=== PATIENT | female | born 1980 | race Caucasian/White ===

== ENCOUNTER 2018-09-09 06:50 | Emergency (ER) | payer OTHER ==
[~2018-09-09 06:50] MED LIST: ACE3 PO; ALBU2.5V36 INH; IBU800 PO; LANO56CR3 TP; PREN1COM12 PO
[2018-09-09] MEDS ORDERED: ONDANSETRON 4 MG/2 ML VIAL IVP ONE (07:10)
[2018-09-09] MEDS ORDERED: fentaNYL CITR 100 MCG/2 ML AMP IVP ONE (07:10)
[2018-09-09] MEDS ORDERED: NS(*) 0.9% 1000 ML BAG 1,000 ML IV ONE (07:10)
[2018-09-09] MEDS ORDERED: FEXO1TAB60 PO (07:12)
--- NOTE | 2018-09-09 07:20 | ER Report ---
History and Physical Time Seen By MD: 07:05 Hx. of Stated Complaint: PT SLIPPED OFF PULL-UP BAR AND LANDED ON L HAND, SLIGHT DEFORMITY PROXIMAL TO L ELBOW, PT FEELS NAUSEOUS HPI/ROS CHIEF COMPLAINT: Arm injury, fall HISTORY OF PRESENT ILLNESS: 38-year-old female was working out today just before arrival swinging on the pull-up bar when she slipped and fell, landing on outstretched hand, and developed instant pain at her left elbow. Patient denies pain in wrist, shoulder. She did not hit her head and she denies other injury. Of note, she became lightheaded and presyncopal as well as pale. She states she frequently has vasovagal reaction with stressors. Pain currently 6/10. Pt has intact sensation distally. REVIEW OF SYSTEMS: Constitutional: No fever, no chills. Eyes: no blurred vision ENT: No sore throat. Cardiovascular: No chest pain, no palpitations. Respiratory: No cough, no shortness of breath. Gastrointestinal: No abdominal pain, no vomiting. Genitourinary: no dysuria Musculoskeletal: No back pain. Injury as above Skin: No rashes. Neurological: No headache. Remainder of the 14 system rev: Yes Allergies: Coded Allergies: No Known Drug Allergies (Verified , 11/08/07) Home Meds Reported Medications Fexofenadine/Pseudoephedrine (JERI-D 12 HOUR TABLET) 1 Each Tab.er.12h, 1 TAB PO BID 09/09/18 Albuterol Sulfate 0.083% (ALBUTEROL SULFATE 0.083%) 2.5 Mg/3 Ml Vial.neb, 2.5 MG INH, INH 04/17/18 Reviewed Nurses Notes: Yes Hx Smoking: No Smoking Status: Never Smoker Exposure to Second Hand Smoke?: No Constitutional Vital Sign - Last 24 Hours 09/09/18 09/09/18 09/09/18 09/09/18 06:50 07:00 07:01 07:03 Pulse ??? B/P (MAP) 53/39 (44) 95/57 (70) 91/58 (69) 09/09/18 09/09/18 09/09/18 09/09/18 07:05 07:07 07:20 07:30 Temp 98.0 Pulse 68 66 61 Resp 16 B/P (MAP) 91/58 102/67 (79) Pulse Ox 89 93 93 O2 Delivery Room Air 09/09/18 09/09/18 09/09/18 09/09/18 07:35 07:50 08:00 08:05 Pulse 78 71 74 B/P (MAP) 110/71 (84) Pulse Ox 92 96 99 09/09/18 09/09/18 09/09/18 08:20 08:30 08:35 Pulse 77 72 B/P (MAP) 117/86 (96) Pulse Ox 96 99 Physical Exam General Appearance: The patient is alert, has no immediate need for airway protection and no signs of toxicity. Eyes: Pupils equal and round no pallor or injection. ENT, Mouth: Mucous membranes are dry. Respiratory: There are no retractions, lungs are clear to auscultation. Cardiovascular: Regular rate and rhythm. Neurological: alert, oriented, no focal deficits Skin: Pale,cool Musculoskeletal: Extremities are nontender, nonswollen and have full range of motion with exception of left elbow. Pt has no shoulder pain/ttp/stepoff. No humerus ttp. +TTP left lateral condyle and radial head. No wrist ttp. Pt able to extend elbow but holds hand in pronation and severe pain on supination. DIFFERENTIAL DIAGNOSIS: After history and physical exam differential diagnosis was considered for fracture, dislocation, soft tissue injury or other emergent result of fall. Medical Decision Making Data Points Result Diagram: 09/09/18 0730 09/09/18 0730 Laboratory Hematology Test 09/09/18 07:30 Red Blood Count 4.67 M/uL (4.17-5.56) Mean Corpuscular Volume 90.7 fL (80.0-96.0) Mean Corpuscular Hemoglobin 30.1 pg (26.0-33.0) Mean Corpuscular Hemoglobin Concent 33.1 g/dL (32.0-36.0) Red Cell Distribution Width 12.8 % (11.5-14.5) Mean Platelet Volume 9.1 fL (7.2-11.1) Neutrophils (%) (Auto) 57.4 % (39.4-72.5) Lymphocytes (%) (Auto) 33.2 % (17.6-49.6) Monocytes (%) (Auto) 4.8 % (4.1-12.4) Eosinophils (%) (Auto) 3.9 % (0.4-6.7) Basophils (%) (Auto) 0.7 % (0.3-1.4) Nucleated RBC Relative Count (auto) 0.1 /100WBC Neutrophils # (Auto) 5.0 K/uL (2.0-7.4) Lymphocytes # (Auto) 2.9 K/uL (1.3-3.6) Monocytes # (Auto) 0.4 K/uL (0.3-1.0) Eosinophils # (Auto) 0.3 K/uL (0.0-0.5) Basophils # (Auto) 0.1 K/uL (0.0-0.1) Nucleated RBC Absolute Count (auto) 0.01 K/uL Prothrombin Time 14.1 seconds (12.0-14.4) Prothromb Time International Ratio 1.09 Activated Partial Thromboplast Time 27 seconds (23-35) Sodium Level 136 mmol/L (137-145) Potassium Level 4.2 mmol/L (3.5-5.0) Chloride Level 108 mmol/L (98-107) Carbon Dioxide Level 22 mmol/L (22-31) Blood Urea Nitrogen 17 mg/dl (7-18) Creatinine 1.10 mg/dl (0.52-1.04) Glomerular Filtration Rate Calc 55.6 Random Glucose 154 mg/dl (75-110) Calcium Level 8.9 mg/dl (8.4-10.2) Total Bilirubin 0.8 mg/dl (0.2-1.3) Aspartate Amino Transf (AST/SGOT) 22 U/L (0-35) Alanine Aminotransferase (ALT/SGPT) 29 U/L (0-56) Alkaline Phosphatase 58 U/L (0-126) Total Protein 6.6 g/dl (6.3-8.2) Albumin 3.9 g/dl (3.5-5.0) Human Chorionic Gonadotropin, Qual Negative (NEGATIVE) Chemistry Test 09/09/18 07:30 White Blood Count 8.8 k/uL (4.5-11.0) Red Blood Count 4.67 M/uL (4.17-5.56) Hemoglobin 14.0 g/dL (12.0-16.0) Hematocrit 42.3 % (34.0-47.0) Mean Corpuscular Volume 90.7 fL (80.0-96.0) Mean Corpuscular Hemoglobin 30.1 pg (26.0-33.0) Mean Corpuscular Hemoglobin Concent 33.1 g/dL (32.0-36.0) Red Cell Distribution Width 12.8 % (11.5-14.5) Platelet Count 259 K/uL (150-450) Mean Platelet Volume 9.1 fL (7.2-11.1) Neutrophils (%) (Auto) 57.4 % (39.4-72.5) Lymphocytes (%) (Auto) 33.2 % (17.6-49.6) Monocytes (%) (Auto) 4.8 % (4.1-12.4) Eosinophils (%) (Auto) 3.9 % (0.4-6.7) Basophils (%) (Auto) 0.7 % (0.3-1.4) Nucleated RBC Relative Count (auto) 0.1 /100WBC Neutrophils # (Auto) 5.0 K/uL (2.0-7.4) Lymphocytes # (Auto) 2.9 K/uL (1.3-3.6) Monocytes # (Auto) 0.4 K/uL (0.3-1.0) Eosinophils # (Auto) 0.3 K/uL (0.0-0.5) Basophils # (Auto) 0.1 K/uL (0.0-0.1) Nucleated RBC Absolute Count (auto) 0.01 K/uL Prothrombin Time 14.1 seconds (12.0-14.4) Prothromb Time International Ratio 1.09 Activated Partial Thromboplast Time 27 seconds (23-35) Glomerular Filtration Rate Calc 55.6 Calcium Level 8.9 mg/dl (8.4-10.2) Total Bilirubin 0.8 mg/dl (0.2-1.3) Aspartate Amino Transf (AST/SGOT) 22 U/L (0-35) Alanine Aminotransferase (ALT/SGPT) 29 U/L (0-56) Alkaline Phosphatase 58 U/L (0-126) Total Protein 6.6 g/dl (6.3-8.2) Albumin 3.9 g/dl (3.5-5.0) Human Chorionic Gonadotropin, Qual Negative (NEGATIVE) Coagulation Test 09/09/18 07:30 Prothrombin Time 14.1 seconds Prothromb Time International Ratio 1.09 Activated Partial Thromboplast Time 27 seconds EKG/Imaging Imaging X-ray: left elbow/humerus/forearm was obtained. I viewed the images myself on the PACS system. My interpretation of the images is: coronoid process fracture. The radiologist interpretation had no clinically significant variation from this interpretation. ED Course/Re-evaluation ED Course 30-year-old patient presents with finished to her nondominant left hand. She has elbow pain and tenderness with pain increased with supination. No pain or tende rness elsewhere. X-rays show minimally displaced coronoid process fracture. Her elbow is stable. This is consistent with a type I fracture. I placed her in a posterior splint at 90. I will arrange follow-up with orthopedics. Anticipate early range of motion if no competitions. Repeat exam shows soft compartments and neurovascularly intact distally. Patient understands strict return precautions. Decision to Disposition Date: Sep 09, 2018 Decision to Disposition Time: 09:13 Depart Departure Latest Vital Signs Vital Signs Date Time Temp Pulse Resp B/P (MAP) Pulse Ox O2 Delivery O2 Flow Rate FiO2 09/09/18 08:35 72 99 09/09/18 08:30 117/86 (96) 09/09/18 07:07 98.0 16 Room Air Impression: Primary Impression: Fracture of coronoid process of left ulna Condition: Improved Disposition: HOME OR SELF-CARE Referrals: ROBERTO PIRES MD (PCP) OUMAR NEVAREZ MD New Scripts Hydrocodone Bit/Acetaminophen (NORCO 5-325 TABLET) 1 Each Tablet 1 EACH PO Q4-6H for PAIN, #10 TAB Prov: ESTUARDO CAMPBELL MD 09/09/18 Patient Instructions: Elbow Fracture (ED) Additional Instructions: As we discussed, call orthopedics to arrange follow-up. Anticipate follow-up in about one week. Please return immediately for uncontrolled pain, concerning swelling, loss of sensation or strength in the wrist or hand, or any concerns. You may take ibuprofen 600 mg every 8 hours, and Tylenol 650 mg every 6 hours for pain. You may use Cardwell for pain not resolved by these medications. If using Cardwell, I recommend taking a laxative like MiraLAX to prevent constipation. Problem Qualifiers Primary Impression: Fracture of coronoid process of left ulna Encounter type: initial encounter Fracture type: closed Fracture alignment: nondisplaced Qualified Codes: S52.045A - Nondisplaced fracture of coronoid process of left ulna, initial encounter for closed fracture ESTUARDO CAMPBELL MD Sep 09, 2018 07:20
[2018-09-09 07:43] LABS: PLATELET COUNT, AUTOMATED 259 K/uL (150-450)
[2018-09-09 07:52] LABS: INR 1.09
--- NOTE | 2018-09-09 08:20 | RADIOLOGY IMAGING REPORT ---
FACILITY: [facility] - [place] PATIENT NAME: Christina Parker : 1980 MR: [id number] V: [id number] EXAM DATE: ORDERING PHYSICIAN: ESTUARDO CAMPBELL TECHNOLOGIST: Location: [facility] - [place] Patient: Christina Parker : 1980 Visit/Account:[id number] Date of Sevice: 09/09/2018 Exam type: ELBOW 2 VIEW LEFT History: Follow-up pole department ground, pain lateral aspect Comparison: None. Findings: Two views of the left elbow demonstrates a fracture fragment projecting anterior to the left elbow billy int on the lateral view. This is likely a fracture through the coronoid process there is moderate so ft tissue swelling about the left elbow particularly along the lateral aspect. IMPRESSION: 1. Fracture fragment projects anterior to the left elbow joint on the lateral view which is likely r elated to the coronoid process. There is associated soft tissue swelling Report Dictated By: Sierra Pineda MD at 09/09/2018 8:14 AM Report E-Signed By: Sierra Pineda MD at 09/09/2018 8:16 AM WSN:[email or web address]
--- NOTE | 2018-09-09 08:22 | RADIOLOGY IMAGING REPORT ---
FACILITY: [facility] PATIENT NAME: Christina Parker : 1980 MR: [id number] V: [id number] EXAM DATE: ORDERING PHYSICIAN: ESTUARDO CAMPBELL TECHNOLOGIST: Location: [facility] [place] Patient: Christina Parker : 1980 Visit/Account:[id number] Date of Sevice: 09/09/2018 Exam type: HUMERUS LEFT History: Fell off pulled par onto ground, lateral pain Comparison: Left elbow and forearm performed today. Findings: Two views of the left humerus demonstrates no evidence of acute fracture-dislocation involving the hu merus. There is a slightly comminuted fracture through the coronoid process of the proximal left uln a IMPRESSION: 1. Slightly comminuted fracture through the coronoid process of the proximal left ulna Report Dictated By: Sierra Pineda MD at 09/09/2018 8:16 AM Report E-Signed By: Sierra Pineda MD at 09/09/2018 8:19 AM WSN:[email or web address]
--- NOTE | 2018-09-09 08:25 | RADIOLOGY IMAGING REPORT ---
FACILITY: [facility] - [place] PATIENT NAME: Christina Parker : 1980 MR: [id number] V: [id number] EXAM DATE: ORDERING PHYSICIAN: ESTUARDO CAMPBELL [place]CHNOLOGIST: [place] [facility] [place] : 1980 Visit/Account:[id number] Date of Sevice: 09/09/2018 Exam type: FOREARM LEFT History: lateral ttp, deformity Comparison: Left elbow performed today and left humerus. Findings: Is a slightly comminuted fracture to the coronoid process of the proximal left ulna with associated s oft tissue swelling. Vertical lucencies in both the left radial and ulnar shafts likely represent va scular grooves. If patient has specific pain in these locations additional imaging recommended IMPRESSION: 1. Slightly comminuted fracture to the coronoid process of the proximal left ulna Report Dictated By: Sierra Pineda MD at 09/09/2018 8:19 AM Report E-Signed By: Sierra Pineda MD at 09/09/2018 8:21 AM WSN:[email or web address]
[2018-09-09 08:30] VITALS: BP 117/86
[2018-09-09] MEDS ORDERED: ACETAMINOPHEN 325 MG TAB PO ONE (09:15)
[2018-09-09] MEDS ORDERED: IBUPROFEN 600 MG TAB PO ONE (09:15)
[2018-09-09] MEDS ORDERED: HYDR-653 PO (09:17)
== END 2018-09-09 09:34 | disposition home or self-care (01) ==
LOC: ER 07:05
DX: S52.045A Nondisplaced fracture of coronoid process of left ulna, initial encounter for closed fracture (principal)
CPT/HCPCS: 29105; 73060; 73070; 73090; 84703; 85025; 85610; 85730; 96374; 96375; 99284; A4565; J2405; J3010; J7030; 82040; 82247; 82310; 82374; 82435; 82565; 82947; 84075; 84132; 84155; 84295; 84450; 84460; 84520